=== PATIENT | male | born 1990 | race Caucasian/White ===

== ENCOUNTER 2024-09-13 10:35 | Outpatient (REF) | payer OTHER, SELFPAY ==
--- OUTSIDE RECORDS SUMMARY | 2024-09-13 12:38 | XMS_ITS | Encounter Summary ---
Author Organization [facility] Address [address] [place] [address] Phone Care Team Providers Care Data Management Name Role Phone Alfredo Vazquez MD Primary Care Provider [phone] Encounter Details Date Type Department Care Team (Late st Contact Info) Description 03/11/2011 Documentation EM Family Medicine [address] [place] [address] Family Medicine, Physician [address] [place], [place] [phone] Social History Tobacco Use Types Packs/Day Years Used Date Smoking Tobacco: Never Assessed Sex and Gender Information Value Date Recorded Sex Assigned at Not on file Legal Sex Male 4:36 PM EDT Gender Identity Not on file Sexual Orientation Not on file documented as of this encounter Plan of Treatment Not on file documented as of this encounter Visit Diagnoses Not on filedocumented in this encounter Care Teams Data Management Relationship Specialty Start Date End Date Alfredo Vazquez MD [address] [place] [address] [place] [address] PCP - General 01/01/17 08/30/22 documented as of this encounter
--- OUTSIDE RECORDS SUMMARY | 2024-09-13 12:38 | XMS_ITS | Encounter Summary ---
Author Organization [email or web address] Address [address] [place] [address] 7 [place] [address] Care Team Providers Care Serology Technician Name Role Phone Flakito Juárez MD Primary Care Prov ider Encounter Details Date Type Department Care Team (Latest Contact Info) Description 03/07/2019 Abstract [facility] CONVERSIONS Dental, Provider, DDS Social History Tobacco Use Types Packs/Day Years Used Date Smoking Tobacco: Never Assessed Sex and Gender Information Value Date Recorded Sex Assigned at Male 03/23/2022 10:27 AM EDT Legal Sex Male 10:27 AM EDT Gender Identity Male 03/23/2022 10:27 AM EDT Sexual Orientation Straight 03/23/2022 10 :27 AM EDT documented as of this encounter Plan of Treatment Upcoming Encounters Date Type Department Care Team ([facility] st Contact Info) Description 10/19/2024 9:30 AM EDT Telemedicine [facility] CHC MED & PEDS [address] [place] [address] Flakito Juárez MD [address] [place] [address] documented as of this encounter Visit Diagnoses Not on filedocumented in this encounter Care Teams Serology Technician Relationship Specialty Start Date End Date Flakito Juárez MD [address] [place] [address] PCP - General Internal Medicine 06/15/24 documented as of this encounter
--- OUTSIDE RECORDS SUMMARY | 2024-09-13 12:38 | XMS_ITS | Clinical Summary ---
Author Organization [facility] Address [address] [place] [address] Phone Care Team Providers Care Washerette Machine Operator Name Role Phone Unavailable Primary Care Provider Unavailabl e Immunizations Immunization Administration Dates Next Due DTaP 5 11/20/1996, 4,01/01/1993,10/09,1992 H1N1 04/16/2009 Hep B, ped/adol 03/12/1993,1992,1992 Hib (PRP-T) 09/17/1993, 3,1992,08/09 IPV 11/20/1996, 4,1992,08/09 Influenza Split 03/10/2011,02/04/2010 MMR 11/20/1996,09/17/1993 Meningococcal Conj (Menactra) MCV4P 08/20/2005 Td (adult) (MBL), 2 Lf tetan us toxoid, PF, adsorbed 12/18/2003 Tdap 02/04/2010 Varicella 11/15/2007,05/05/1996 Family History Relation Name Status Comments Brother Alive Brother: Alive and well Mother Alive Mother: Hyperte nsion Other Family history of Diabetes mellitus, Family history of Cancer, breast, Family history of Hypertension Social History Tobacco Use Types Packs/Day Years Used Date Smoking Tobacco: Never Comments:Never smoker Sex and Gender Information Value Date Recorded Sex Assigned at Not on file Legal Sex Male 4:36 PM EDT Gender Identity Not on file Sexual Orientation Not on file Last Filed Vital Signs Vital Sign Reading Time Taken Comments Blood Pressure 122/70 03/10/2011 12:00 AM EDT Pulse 76 03/10/2011 12:00 AM EDT Temperature 36.2 ??C (97.1 ??F) 03/10/2011 12:00 AM E DT Respiratory Rate - - Oxygen Saturation - - Inhaled Oxygen Concentration - - Weight 91.2 kg (201 lb) 03/10/2011 12:00 AM EDT Height 173.5 cm (5' 8.3 ) 03/10/2011 12:00 AM ED T Body Mass Index 30.29 03/10/2011 12:00 AM EDT Plan of Treatment Health Maintenance Due Date Last Done Comments DTaP,Tdap,and Td Vaccines (7 - Td or Tdap) 02/05/2020 02/04/2010, 12/18/2003, 11/20/1996, Additional history exists Influenza Vaccines (#1) 2023 03/10/2011, 02/04 COVID-19 Vaccine ( season) 2024 Hepatitis B Vaccines Completed 03/12/1993, 1992, 1992 HIB Vaccines Completed 09/17/1993, 12/22, 1992, Additional history exists IPV Vaccines Completed 11/20/1996, 04/23, 1992, Additional history exists MMR Vaccines Completed 11/20/1996, 09/17/1993 Meningococcal Vaccine Aged Out 08/20/2005 No cecilia piper eligible based on patient's age to complete this topic Varicella Vaccines Completed 11/15/2007, 05/05/1996 HPV Vaccines Aged Out No longer eligi ble based on patient's age to complete this topic Hepatitis A Vaccines Aged Out No long er eligible based on patient's age to complete this topic Men B Vaccine Aged Out No longer elig ible based on patient's age to complete this topic Pneumococcal Vaccine Aged Out No long er eligible based on patient's age to complete this topic
--- OUTSIDE RECORDS SUMMARY | 2024-09-13 12:38 | XMS_ITS | Encounter Summary ---
Author Organization [facility] Address [address] [place] [address] Phone Care Team Providers Care Rapid Outsole Stitcher Name Role Phone Alfredo Vazquez MD Primary Care Provider [phone] Encounter Details Date Type Department Care Team (Late st Contact Info) Description 03/11/2011 Documentation EM Family Medicine [address] [place] [address] Family Medicine, Physician [address] [place], [place] [phone] Social History Tobacco Use Types Packs/Day Years [...] on filedocumented in this encounter Care Teams Rapid Outsole Stitcher Relationship Specialty Start Date End Date Alfredo Vazquez MD [address] [place] [address] [place] [address] PCP - General 01/01/17 08/30/22 documented as of this encounter
--- OUTSIDE RECORDS SUMMARY | 2024-09-13 12:38 | XMS_ITS | Encounter Summary ---
Author Organization [facility] Address [address] [place] [address] Phone Care Team Providers Care Homemaker Companion Name Role Phone Alfredo Vazquez MD Primary Care Provider [phone] Encounter Details Date Type Department Care Team (Late st Contact Info) Description 01/07/2017 Conversion Encounter [facility] [address] [place] [address] Social History Tobacco Use Types Packs/Day Years [...] on filedocumented in this encounter Care Teams Homemaker Companion Relationship Specialty Start Date End Date Alfredo Vazquez MD [address] [place] [address] PCP - General 01/01/17 08/30/22 documented as of this encounter
--- OUTSIDE RECORDS SUMMARY | 2024-09-13 12:38 | XMS_ITS | Encounter Summary ---
Author Organization [facility] Address [address] [place] [address] Phone Care Team Providers Care Biofuels Engineering Manager Name Role Phone Alfredo Vazquez MD Primary Care Provider [phone] Encounter Details Date Type Department Care Team (Late st Contact Info) Description 03/11/2011 Documentation EM Family Medicine [address] [place] [address] Family Medicine, Physician [address] [place], [place] [phone] Social History Tobacco Use Types Packs/Day Years [...] on filedocumented in this encounter Care Teams Biofuels Engineering Manager Relationship Specialty Start Date End Date Alfredo Vazquez MD [address] [place] [address] [place] [address] PCP - General 01/01/17 08/30/22 documented as of this encounter
--- OUTSIDE RECORDS SUMMARY | 2024-09-13 12:39 | XMS_ITS | Encounter Summary ---
Author Organization [employer] Address [address] [facility] 7 [place] [address] Care Team Providers Care Filling Hauler Name Role Phone Flakito Juárez MD Primary Care Prov ider Encounter Details Date Type Department Care Team ([facility] st Contact Info) Description 09/13/2024 9:00 AM EDT Office Visit [facility] CHC MED & PEDS [address] [place], [place] [phone] Flakito Juárez MD [address] [place] [address] Class 3 severe obesity due to excess calories with serious comorbidity and body mass index (BMI) of 45.0 to 49.9 in adult (Primary Dx); Primary hypertension; APRYL on CPAP Social History Tobacco Use Types Packs/Day Years Used Date Smoking Tobacco: Never Smokeless Tobacco: Never Alcohol Use Standard Drinks/Week Comments Yes 0 (1 standard drink = 0.6 oz pur e alcohol) socially Depression Answer Date Recorded Patient Health Questionnaire-9 Score 0 06/15/2024 Patient Health Questionnaire-9 Score 0 06/15/2024 Last PHQ-9: Questionnaire Data Not on file 0 06/15/2024 Depression Answer Date Recorded Patient Health Questionnaire-2 Score 0 06/15/2024 Sex and Gender Information Value Date Recorded Sex Assigned at Male 03/23/2022 10:27 AM EDT Legal Sex Male 10:27 AM EDT Gender Identity Male 03/23/2022 10:27 AM EDT Sexual Orientation Straight 03/23/2022 10 :27 AM EDT documented as of this encounter Last Filed Vital Signs Vital Sign Reading Time Taken Comments Blood Pressure 173/101 09/13/2024 9:09 AM EDT Pulse 69 09/13/2024 9:09 AM EDT Temperature 36.7 ??C (98 ??F) 09/13/2024 9:09 AM EDT Respiratory Rate 20 09/13/2024 9:09 AM EDT Oxygen Saturation 98% 09/13/2024 9:09 AM EDT Inhaled Oxygen Concentration - - Weight 152 kg (336 lb) 09/13/2024 9:09 AM EDT Height 175.3 cm (5' 9 ) 09/13/2024 9:09 AM EDT Body Mass Index 49.62 09/13/2024 9:09 AM EDT documented in this encounter Progress Notes * Flakito Conklin MD - 09/13/2024 9:00 AM EDT Subjective Patient ID: Walter López is a 34 y.o. male who presents for No chief complaint on file.. Hypertension This is a new problem. Pertinent negatives include no chest pain, headaches, malaise/fatigue, palpitations, peripheral edema or shortness of breath. Patient was seen on office for a physical examination Review of Systems Constitutional: Negative for malaise/fatigue. Respiratory: Negative for shortness of breath. Cardiovascular: Negative for chest pain and palpitations. Neurological: Negative for headaches. Objective Physical Exam Constitutional: Appearance: Normal appearance. HENT: Right Ear: Tympanic membrane, ear canal and external ear normal. There is no impacted cerumen. Left Ear: Tympanic membrane, ear canal and external ear normal. There is no impacted cerumen. Cardiovascular: Rate and Rhythm: Normal rate and regular rhythm. Heart sounds: No murmur heard. Pulmonary: Effort: Pulmonary effort is normal. No respiratory distress. Breath sounds: No stridor. No wheezing or rhonchi. Abdominal: General: Abdomen is flat. There is no distension. Palpations: There is no mass. Tenderness: There is no abdominal tenderness. There is no guarding or rebound. Hernia: No hernia is present. Musculoskeletal: General: No swelling or tenderness. Normal range of motion. Cervical back: Normal range of motion. No rigidity or tenderness. Lymphadenopathy: Cervical: No cervical adenopathy. Skin: General: Skin is warm. Coloration: Skin is not jaundiced or pale. Neurological: General: No focal deficit present. Mental Status: He is alert and oriented to person, place, and time. Psychiatric: Mood and Affect: Mood normal. Behavior: Behavior normal. Assessment/Plan Problem List Items Addressed This Visit Primary hypertension Patient asymptomatic, will start on losartan, blood pressure monitor sent to [facility], will follow up in1 month, encouraged lifestyle modifications such as decreasing sodium, exercising, weight loss APRYL on CPAP Followed by sleep medicine on CPAP, will follow up reccomendations Class 3 severe obesity due to excess calories with serious comorbidity and body mass index (BMI) of45.0 to 49.9 in adult - Primary Encouraged to decrease calorie intake, exercise, follow up as needed, could be started on phentermine if patient decides Relevant Orders CBC auto differential Comprehensive Metabolic Panel Lipid Panel, Standard TSH W/Reflex to FT4 Hemoglobin A1c HIV-1/2 Antigen and Antibodies, Fourth Generation, with Reflexes Hepatitis C Antibody with Reflex to HCV, RNA, Quantitative, Real-Time PCR documented in this encounter Miscellaneous Notes * Assessment & Plan Note - Flakito Conklin MD - 09/13/2024 9:54 AM EDTAssociated Problem(s): Class 3 severe obesity due to excess calories with serious comorbidity and body mass index (BMI) of 45.0 to 49.9 in adult Encouraged to decrease calorie intake, exercise, follow up as needed, could be started on phentermine if patient decides * Assessment & Plan Note - Flakito Conklin MD - 09/13/2024 9:53 AM EDTAssociated Problem(s): APRYL on CPAP Followed by sleep medicine on CPAP, will follow up reccomendations * Assessment & Plan Note - Flakito Conklin MD - 09/13/2024 9:52 AM EDTAssociated Problem(s): Primary hypertension Patient asymptomatic, will start on losartan, blood pressure monitor sent to [facility], will follow up in1 month, encouraged lifestyle modifications such as decreasing sodium, exercising, weight loss documented in this encounter Plan of Treatment Upcoming Encounters Date Type Department Care Team (Late st Contact Info) Description 10/19/2024 9:30 AM EDT Telemedicine [facility] MED & PEDS [address] [place], [place] [phone] Flakito Juárez MD [address] [place], [place] [phone] Scheduled Orders Name Type Priority Associated Diagnoses Orde r Schedule CBC auto differential Lab Routine Class 3 severe obesity due to excess calories with serious comorbidity and body mass index (BMI) of 45.0 to 49.9 in adult ([facility]) Expected: 09/13/2024 (Approximate), Expires: 09/13/2025 Comprehensive Metabolic Panel Lab Routine Class 3 severe obesity due to excess calories with serious comorbidity and body mass index (BMI) of 45.0 to 49.9 in adult ([facility]) Expected: 09/13/2024 (Approximate), Expires: 09/13/2025 Lipid Panel, Standard Lab Routine Class 3 severe obesity due to excess calories with serious comorbidity and body mass index (BMI) of 45.0 to 49.9 in adult Expected: 09/13/2024 (Approximate), Expires: 09/13/2025 TSH W/Reflex to FT4 Lab Routine Class 3 severe obesity due to excess calories with serious comorbidity and body mass index (BMI) of 45.0 to 49.9 in adult Expected: 09/13/2024 (Approximate), Expires: 09/13/2025 Hemoglobin A1c Lab Routine Class 3 severe obesity due to excess calories with serious comorbidity and body mass index (BMI) of 45.0 to 49.9 in adult Expected: 09/13/2024 (Approximate), Expires: 09/13/2025 HIV-1/2 Antigen and Antibodies, Fourth Generation, with Reflexes Lab Routine Class 3 severe obesity due to excess calories with serious comorbidity and body mass index (BMI) of 45.0 to 49.9 in adult Expected: 09/13/2024 (Approximate), Expires: 09/13/2025 Hepatitis C Antibody with Reflex to HCV, RNA, Quantitative, Real-Time PCR Lab Routine Class 3 severe obesity due to excess calories with serious comorbidity and body mass index (BMI) of 45.0 to 49.9 in adult Expected: 09/13/2024, Expires: 09/13/2025 documented as of this encounter Visit Diagnoses Diagnosis Class 3 severe obesity due to excess calories with serious comorbidity and body mass index (BMI) of 45.0 to 49.9 in adult- Primary Primary hypertension Unspecified essential hypertension APRYL on CPAP documented in this encounter Additional Health Concerns Assessment Noted Time PHQ-9 Depression Total Score: 0 06/15/19 9:38 AM EST documented as of this encounter Care Teams Filling Hauler Relationship Specialty Start Date End Date Flakito Juárez MD [address] [place] [address] PCP - General Internal Medicine 06/15/24 documented as of this encounter
--- OUTSIDE RECORDS SUMMARY | 2024-09-13 12:39 | XMS_ITS | Encounter Summary ---
Author Organization [employer] Address [address] [facility] 7 [place] [address] Care Team Providers Care City Library Director Name Role Phone Flakito Juárez MD Primary Care Prov ider Encounter Details Date Type Department Care Team (Latest Contact Info) Description 09/13/2024 Travel Social History Tobacco Use Types Packs/Day Years [...] Info) Description 10/19/2024 9:30 AM EDT Telemedicine [facility] CHC MED & PEDS [address] [place] [address] Flakito Juárez MD [address] [place] [address] documented as of this encounter Visit Diagnoses Not on filedocumented in this encounter Additional Health Concerns Assessment Noted Time PHQ-9 Depression Total Score: 0 06/15/19 9:38 AM EST documented as of this encounter Care Teams City Library Director Relationship Specialty Start Date End Date Flakito Juárez MD [address] [place] [address] PCP - General Internal Medicine 06/15/24 documented as of this encounter
--- OUTSIDE RECORDS SUMMARY | 2024-09-13 12:39 | XMS_ITS | Clinical Summary ---
Author Organization [employer] Address [address] [facility] [address]t [place] [address] Care Team Providers Care Buck Swamper Name Role Phone Flakito Juárez MD Primary Care Prov ider Allergies No known active allergies Medications Blood Pressure kit 1 kit Once per day. 1 kit 5 Active losartan (Cozaar) 25 MG tablet Take 1 tablet (25 mg) by mouth Once per day. 30 tablet 11 5 09/14/19 26 Active Blood Pressure kit 1 kit Once per day. 1 kit 5 09/14/19 25 Discontinued Active Problems Problem Noted Date Diagnosed Date Primary hypertension 09/13/2024 Assessment & Plan (09/13/2024 9:52 AM EDT): Patient asymptomatic, will start on losartan, blood pressure monitor sent to [facility], will follow up in 1 month, encouraged lifestyle modifications such as decreasing sodium, exercising, weight loss APRYL on CPAP 09/13/2024 Assessment & Plan (09/13/2024 9:53 AM EDT): Followed by sleep medicine on CPAP, will follow up reccomendations Class 3 severe obesity due t o excess calories with serious comorbidity and body mass index (BMI) of 45.0 to 49.9 in adult 09/13/2024 Assessment & Plan (09/13/2024 9:54 AM EDT): Encouraged to decrease calorie intake, exercise, follow up as needed, could be started on phentermine if patient decides Encounter for medical examination to establish c are 06/15/2024 Assessment & Plan (06/15/2024 10:03 AM EST): Last pcp > 5yrs ER: - Hospitalization:- Pmhx:- Pshx: tonsils 2001 All: - Meds: - Snoring 06/15/2024 Assessment & Plan (06/15/2024 10:16 AM EST): Stop bang 4 points, will refer to sleep medicine Encounters Date Type Department Care Team Description 09/13/2024 9:00 AM EDT Office Visit [facility] MED & PEDS [address] [place] [address] Flakito Juárez MD Class 3 severe obesity due to excess calories with serious comorbidity and body mass index (BMI) of 45.0 to 49.9 in adult (Primary Dx); Primary hypertension; APRYL on CPAP 09/13/2024 Travel 09/01/2024 Patient Outreach [facility] MEDICINE [address] [place] [address] Flakito Juárez MD Pre-visit Planning (Pre visit planning LVM ) 06/15/2024 9:45 AM EST Telemedicine [facility] MED & PEDS [address] [place] [address] Flakito Juárez MD Encounter for medical examination to establish care (Primary Dx); Snoring 06/15/2024 Travel from Last 3 Months Family History Medical History Relation Name Comments No Known Problems Father Diabetes Maternal Grandmother Sleep apnea Mother Cancer Neg Hx Relation Name Status Comments Father Maternal Grandmother Mother Social History Tobacco Use Types Packs/Day Years Used Date Smoking Tobacco: Never Smokeless Tobacco: Never Tobacco Cessation:Counseling Given: Not Answered Alcohol Use Standard Drinks/Week Comments Yes 0 [...] Orientation Straight 03/23/2022 10 :27 AM EDT Last Filed Vital Signs Vital Sign Reading [...] Mass Index 49.62 09/13/2024 9:09 AM EDT Plan of Treatment Upcoming Encounters Date Type Department Care Team (Late st Contact Info) Description 10/19/2024 9:30 AM EDT Telemedicine [facility] CHC MED & PEDS [address] [place] [address] Flakito Juárez MD [address] [place] [address] Health Maintenance Due Date Last Done Comments HIV Screening 1992 Lipid Panel 1992 SDOH Screening 1992 Alcohol/Substance Use Screening 2004 Family Planning (PISQ) 2007 Hepatitis C Screening 2010 DTaP/Tdap/Td Vaccines (1 - Tdap) 2011 Hepatitis B Vaccines (1 of 3 - 19+ 3-dose series) 2011 COVID-19 Vaccine (3 - 2023-2 5 season) 2024 10/02/2020, 09/04/2020 Influenza Vaccine (#1) 2024 04/24/2015 Depression Screening 06/15/2025 06/15/2024, 06/15/2024 Tobacco Screening 06/15/2025 06/15/2024 Zoster Vaccines (1 of 2) 2042 RSV Patients and Patients Aged 60 years or older (1 - 1-dose 75+ series) 2067 HIB Vaccines Aged Out No longer eligi ble based on patient's age to complete this topic HPV Vaccines Aged Out No longer eligi ble based on patient's age to complete this topic Hepatitis A Vaccines Aged Out No long er eligible based on patient's age to complete this topic IPV Vaccines Aged Out No longer eligi ble based on patient's age to complete this topic Meningococcal Vaccine Aged Out No cecilia piper eligible based on patient's age to complete this topic Pneumococcal Vaccine: Pediatrics (0 to 5 Years) and At-Risk Patients (6 to 49) Years) Aged Out No longer eligible b ased on patient's age to complete this topic RSV under 20 months Aged Out No longe r eligible based on patient's age to complete this topic Rotavirus Vaccines Aged Out No longer eligible based on patient's age to complete this topic Insurance [facility] [place] [address] Care Teams Buck Swamper Relationship Specialty Start Date End Date Flakito Juárez MD [address] [place] [address] MONICA Bowen [address] PCP - General Internal Medicine 06/15/24
[2024-09-13 14:11] LABS: MANUAL DIFF FLAG NO
[2024-09-13 14:23] LABS: Estimated Average Glucose 197 mg/dL; Hemoglobin A1C 254.5622 umol/L; Hemoglobin A1c % 8.5 % (<6.0); Total Hemoglobin (HGBA1C) 3643.1649 umol/L
[2024-09-13 14:34] LABS: Alanine Aminotransferase 44 U/L (0-40); Albumin Level 4.1 g/dL (3.5-5.0); Alkaline Phosphatase 67 U/L (39-117); Anion Gap 11 (12-20); Aspartate Amino Transferase 27 U/L (5-37); Basophils Percent Auto 0.7 % (0-2); Bilirubin Total 0.3 mg/dL (0.0-1.0); Blood Urea Nitrogen 13 mg/dL (9-16); Calcium 9.4 mg/dL (8.4-10.2); Carbon Dioxide 29 mmol/L (22-29); Chloride 101 mmol/L (96-108); Cholesterol 167 mg/dL (<200); Eosinophils Absolute Auto 0.2 X10*3/uL (0.0-0.4); Estimated Glomerular Filt Rate > 60; Glucose Random 213 mg/dL (60-115); HDL Cholesterol 41 mg/dL (>40); Hematocrit 42.8 % (42.0-52.0); Hemoglobin 13.8 g/dl (14.0-18.0); Imm Gran Abs Auto 0.02 X10*3/uL (0.00-0.03); Imm Gran Pct Auto 0.3 % (0.0-0.4); LDL Cholesterol Calculated 75 mg/dL (<100); Lymphocytes Absolute Auto 1.6 X10*3/uL (1.2-4.9); Lymphocytes Percent Auto 28.5 % (20-40); Mean Corpuscular HGB Conc 32.2 g/dl (31.0-36.0); Mean Corpuscular Hemoglobin 26.8 pg (27.0-33.0); Mean Corpuscular Volume 83.1 fL (80.0-98.0); Mean Platelet Volume 10.5 fL (9.4-12.4); Monocytes Absolute Auto 0.4 X10*3/uL (0.1-1.2); Monocytes Percent Auto 7.7 % (2-11); Neutrophils Absolute Auto 3.4 x10*3/uL (2.0-8.3); Neutrophils Percent Auto 59.8 % (45-73); Platelet Count 310 X10*3/uL (160-400); Potassium 4.3 mmol/L (3.3-5.1); Red Blood Count 5.15 X10*6/uL (4.60-5.80); Red Cell Distribution Width 13.1 % (11.0-16.0); Sodium 137 mmol/L (135-145); Total Protein 7.6 g/dL (6.5-8.0); Triglycerides 256 mg/dL (<150); White Blood Count 5.7 X10*3/uL (4.8-10.8)
[2024-09-13 14:53] LABS: TSH reflex Free T4 2.22 uIU/mL (0.32-4.0)
[2024-09-14 04:01] LABS: HIV AB/AG Nonreactive (Nonreactive); HIV Num 1 0.08 S/CO (0.00-0.99); ~HepC Num1 0.19 S/CO (0.00-0.79); ~Hepatitis C Antibody Nonreactive (Nonreactive)
== END 2024-09-13 10:36 | disposition home or self-care (01) ==
LOC: HO.CHCLDS 10:35
PROVIDERS: Visit Provider Internal Medicine
DX: E66.813 Obesity, class 3 (principal); Z68.42 Body mass index [BMI] 45.0-49.9, adult
CPT/HCPCS: 36415; 80053; 80061; 83036; 84443; 85025; 86803; 87389

== ENCOUNTER 2024-12-11 09:35 | Outpatient (REF) | payer OTHER, SELFPAY ==
--- OUTSIDE RECORDS SUMMARY | 2024-12-11 10:10 | XMS_ITS | Encounter Summary ---
Author Organization [employer] Address [address] [facility] 7 [place] [address] Care Team Providers Care Title I Paraprofessional Name Role Phone Flakito Juárez MD Primary Care Prov ider Encounter Details Date Type Department Care Team (Latest Contact Info) Description 03/07/2019 Abstract [facility] CONVERSIONS Dental, Provider, DDS Social History [...] Care Team (Late st Contact Info) Description 12/18/2024 1:30 PM EDT Telemedicine [facility] CHC MED & PEDS [address] [place] [address] Flakito Juárez MD [address] [place] [address] documented as of this encounter Visit Diagnoses Not on filedocumented in this encounter Care Teams Title I Paraprofessional Relationship Specialty Start Date End Date Flakito Juárez MD [address] [place] [address] PCP - General Internal Medicine 06/15/24 documented as of this encounter
--- OUTSIDE RECORDS SUMMARY | 2024-12-11 10:10 | XMS_ITS | Encounter Summary ---
Author Organization [facility] Address [address] [place] [address] Phone Care Team Providers Care Cryolite Recovery Operator Name Role Phone Alfredo Vazquez MD Primary Care Provider [phone] Encounter Details Date Type Department Care Team (Late st Contact Info) Description 03/11/2011 Documentation EM Family Medicine [address] [place] [address] Family Medicine, Physician [address] [place], [place] [phone] Social History Tobacco Use Types Packs/Day Years [...] on filedocumented in this encounter Care Teams Cryolite Recovery Operator Relationship Specialty Start Date End Date Alfredo Vazquez MD [address] [place] [address] [place] [address] PCP - General 01/01/17 08/30/22 documented as of this encounter
[2024-12-11 14:41] LABS: Hemoglobin A1C 163.2922 umol/L; Total Hemoglobin (HGBA1C) 3575.3168 umol/L
[2024-12-11 14:46] LABS: Microalbum/Creatinine Ratio Ur 45.0 ug/mg cr (<30)
== END 2024-12-11 09:36 | disposition home or self-care (01) ==
LOC: HO.CHCLDS 09:35
PROVIDERS: Visit Provider Internal Medicine
DX: E11.9 Type 2 diabetes mellitus without complications (principal)
CPT/HCPCS: 36415; 82043; 82570; 83036